=== PATIENT | male | born 1980 | race Caucasian/White ===

== ENCOUNTER 2016-05-20 13:00 | Emergency (ER) | payer OTHER ==
--- NOTE | 2016-05-20 13:09 | EDPHY ---
H & P Time Seen by Provider: 05/20/16 13:02 HPI/ROS: Chief complaint. Knee pain HPI. 35-year-old male here by EMS after slip and fall injuring his right lower leg.The injury occurred yesterday at home. The patient was getting up from the couch and got lightheaded and somewhat dizzy and off balance and fell to the ground injuring his right knee. He has had this kind of dizziness frequently before and the dizziness was nothing unusual and he says frequently he gets up too fast. Injury to the right knee to right foot. No head injury neck pain chest abdominal pain back pain or injury to arms or left leg. He is able to bear weight but it hurts to walk. He has not had previous injury or problem with the right lower extremity. ROS Constitutional. no fever/chills, no weakness Eyes. no problems with vision ENT. no sore throat, no nasal drainage Cardiovascular. no chest pain Respiratory. no shortness of breath, no cough Abdominal. no abdominal pain, no nausea/vomiting, no diarrhea . no problems urinating MS. Right knee [place] ankle and foot pain Skin. no rash Lymph. no swollen glands Neuro. no headache, no dizziness, no difficulty walking or with speech Past Medical/Surgical History: Mental health issues Social History: Single, daily smoker, no alcohol Smoking Status: Current every day smoker Physical Exam: General Appearance: Alert well-developed male mild distress vital signs are stable Eyes: Pupils equal and round no pallor or injection. ENT, Mouth: Mucous membranes are moist. Respiratory: There are no retractions, lungs are clear to auscultation. Cardiovascular: Regular rate and rhythm. Gastrointestinal: Abdomen is soft and nontender, no masses, bowel sounds normal. Neurological: Awake and alert, sensory and motor exams grossly normal. Skin: Warm and dry, no rashes. Musculoskeletal: Neck is supple nontender. Extremities right knee with some mild diffuse swelling. There is tenderness to the medial and lateral aspects of the joint line. No obvious deformity. No instability to stress. Tenderness without swelling or deformity to the right ankle as well as to the dorsum of the right foot Psychiatric: Patient is oriented X 3, there is no agitation. Constitutional: Initial Vital Signs Temperature (C) 36.8 C 05/20/16 13:15 Heart Rate 105 H 05/20/16 13:15 Respiratory Rate 16 05/20/16 13:15 Blood Pressure 131/85 H 05/20/16 13:15 O2 Sat (%) 92 05/20/16 13:15 O2 Delivery Mode Room Air Allergies/Adverse Reactions: No Known Allergies Allergy (Unverified 03/30/10 10:47) Home Medications: Medication Instructions Recorded Docusate Sodium [Colace 100 MG (*)] 100 mg PO DAILY@1500 08/24/13 Omeprazole 40 mg PO DAILY@1800 08/24/13 Simvastatin [Zocor 20 mg] 20 mg PO DAILY@15 08/24/13 risperiDONE [Risperdal 1mg (*)] 2 mg PO DAILY 08/24/13 Hydrocodone/APAP 5/325 [[place] 1 each PO Q4-6PRN PRN #14 tab 05/20/16 5/325 (*)] Medical Decision Making - Diagnostics Imaging: X-ray right knee, ankle, foot. By my interpretation there is no fracture or dislocation. There does appear to be a right knee effusion. ED Course/Re-evaluation: Re-evaluation at 2:05 p.m.. The patient, his sister, and I discussed imaging study results, treatment plan including criteria for return and importance of follow-up and further evaluation. They expressed understanding and agreement Patient was reexamined and does not have any pain to his toes or the base of his toes Knee immobilizer is applied. Post splint application examined by me shows good anatomic position and distal motor vascular sensitivity to be intact Differential Diagnosis: I considered fracture, dislocation, sprain This sounds like the patient's dizziness is a result of orthostatic hypotension likely to medications. He has had this for quite some time. He and I discussed encouraging him to discuss this with his prescribing physician. I do not think this represents acute coronary syndrome Departure - Departure Disposition: Home, Routine, Self-Care Clinical Impression: Right knee sprain Qualifiers: Encounter type: initial encounter Involved ligament of knee: unspecified ligament Qualifier Code: (S83.91XA) Sprain of unspecified site of right knee, initial encounter Condition: Good Instructions: Knee Sprain (ED), Knee Immobilizer (ED) Additional Instructions: Ice and elevation to your knee next 24-48 hours. Hydrocodone or Tylenol as needed for discomfort. Knee immobilizer on for 1 week. Return for worsening symptoms. For continued pain after 1 week make an appointment follow-up with orthopedist for further evaluation Referrals: Patient,NotPresent [Primary Care Provider] - As per Instructions Hien Hills MD [Medical Doctor] - 5-7 days, if not improved Prescriptions: Hydrocodone/APAP 5/325 [[place] 5/325 (*)] 1 each PO Q4-6PRN PRN #14 tab PRN Reason: Pain, Moderate
[2016-05-20 13:17] VITALS: RESP 16
--- NOTE | 2016-05-20 14:08 | DX ---
Right Knee , 6 views, including a sunrise view History: Pain post trauma. Fall. Findings: No obviously acute fracture, effusion or alignment is identified. A small focal, smooth con cave, cortical divot is present in the posterior patella, lower third, that may represent evidence of remote trauma or chondromalacia. Impression: Nothing obviously acute identified. Query chronic chondromalacia patella
--- NOTE | 2016-05-20 14:09 | DX ---
1. Right Foot , Three History:Pain post trauma. Fall. Findings: Possible nondisplaced oblique fracture coursing through the medial base of the proximal pha lanx of the third digit. The third metatarsal phalangeal joint is normally aligned. No other fractur e is identified. Mineralization is normal. Impression: Possible fracture proximal phalanx third toe. Correlation with the site of symptoms is re quired. 2. Right Ankle, Three Views History: Pain, post trauma. Fall. Findings: No fracture, effusion, or dislocation is identified. Impression: Nothing acute identified. Results discussed with Dr. Soria by telephone at 2:07 p.m.
[2016-05-20 14:32] VITALS: BP 139/87; PULSE 95; TEMP 98.1; O2SAT 95
== END 2016-05-20 14:32 | disposition home or self-care (01) ==
LOC: EDUNIT#
DX: S83.91XA Sprain of unspecified site of right knee, initial encounter (principal); F17.200 Nicotine dependence, unspecified, uncomplicated; W01.0XXA Fall on same level from slipping, tripping and stumbling without subsequent striking against object, initial encounter; Y92.009 Unspecified place in unspecified non-institutional (private) residence as the place of occurrence of the external cause
CPT/HCPCS: L1830